=== PATIENT | female | born 1960 | race Caucasian/White ===

== ENCOUNTER 2017-10-02 22:30 | Emergency (ER) | payer SELFPAY ==
[2017-10-02] MEDS ORDERED: Ketorolac Tromethamine 30 MG/ML VIAL ONE (22:41)
[2017-10-02] MEDS ORDERED: Ondansetron HCl/PF 4 MG/2 ML Vial ONE (22:41)
[2017-10-02 23:00] LABS: Bilirubin Negative (Negative); Blood, Urine Negative (Negative); Clarity Clear (Clear); Glucose, Urine (Dipstick) Negative (Negative); Leukocyte Trace (Negative); Nitrite Negative (Negative); Protein, Urine (Dipstick) Negative (Neg-Trace); Urobilinogen 0.2 mg/dL (0.2-1.0)
[2017-10-02 23:02] LABS: Specific Gravity, Urine 1.006 (1.002-1.036)
[2017-10-02 23:04] LABS: Bacteria/HPF None Seen HPF (None Seen); RBC/HPF None Seen HPF (0-3); Squamous Epithelial 0-3 HPF (0-3); WBC/HPF 0-3 HPF (0-3)
[2017-10-02 23:13] LABS: Band 3 % (5-11); Eosinophils 4 % (0-10); Lymphocytes 42 % (21-51); MDiff Complete? YES; Mean Corpuscular HGB CONC 31.1 g/dL (32.0-36.0); Mean Corpuscular Hemoglobin 27.1 pg (27.0-31.0); Mean Corpuscular Volume 87.3 fl (81.0-99.0); Mean Platelet Volume 8.2 fL (7.4-10.4); Monocytes 3 % (0-10); Neutrophil 48 % (42-75); PLT Morphology Comment Appears Adequate; Platelet Count 342 thou/uL (130-400); RBC Distribution Width 13.1 % (11.5-14.5); RBC Morphology Normal; White Blood Cell (WBC) Count 12.5 thou/uL (4.8-10.8)
--- NOTE | 2017-10-02 23:33 | CT ---
CT OF THE ABDOMEN AND PELVIS: Date: 10/02/17 PROVIDED CLINICAL HISTORY: Abdominal pain. FINDINGS: No comparisons. Visualized lung bases are free of significant opacity. The solid abdominal organs demonstrate an unre markable unenhanced appearance. 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 There is marked gaseous distention of the excluded gastric remnant, duodenum, and proximal small bowel. There are numerous loops of mildly dilated bowel containing particulate matter. There is a focal area of dilated bowel present within the pelvis that appears to represent small bowel and measures up to 9.5 cm in greatest transverse dimension. There a re decompressed loops of distal small bowel, as well as decompressed colon. There is no evidence for pneumatosis or portal venous gas. There is no evidence for pneumoperitoneum. Changes of prior cholecy stectomy are seen. Scattered vascular calcifications are noted. The osseous structures demonstrate no concerning lytic or blastic lesions. Bone island involving the right iliac wing is seen. IMPRESSION: Findings compatible with small bowel obstruction. The degree of retained particulate matter within th e small bowel suggests a component of a longstanding low grade partial small bowel obstruction. POS: [id number]
[2017-10-02] MEDS ORDERED: Promethazine HCl 25 MG/ML VIAL ONE (23:35)
[2017-10-02 23:36] LABS: ALT (SGPT) 25 U/L (8-55); AST (SGOT) 27 U/L (5-34); Albumin 4.3 g/dL (3.5-5.0); Alkaline Phosphatase 144 U/L (40-150); Anion Gap 15 mmol/L (10-20); BUN (Urea Nitrogen) 8 mg/dL (9.8-20.1); Bilirubin, Total 0.2 mg/dL (0.2-1.2); Calc. Creatinine Clearance 0 mL/min (70-130); Calcium 9.4 mg/dL (7.8-10.44); Carbon Dioxide 24 mmol/L (22-29); Chloride 108 mmol/L (98-107); Estimated GFR-MDRD 76; Globulin 2.6 g/dL (2.4-3.5); Glucose 119 mg/dL (70-105); Potassium 4.4 mmol/L (3.5-5.1); Protein, Total 6.9 g/dL (6.0-8.3); Sodium 143 mmol/L (136-145)
[2017-10-02] MEDS ORDERED: Sodium Chloride 0.9% 0 ML ONE (23:36)
[2017-10-02] MEDS ORDERED: Fentanyl 100 MCG/2 ML VIAL ONE (23:48)
== END 2017-10-03 00:03 | disposition short-term general hospital (02) ==
LOC: NAV ERS 22:30
DX: K56.609 Unspecified intestinal obstruction, unspecified as to partial versus complete obstruction (principal); F32.9 Major depressive disorder, single episode, unspecified; Z79.899 Other long term (current) drug therapy
CPT/HCPCS: 74176; 80053; 81003; 81015; 85025; 87077; 87086; 87186; 96374; 96375; J1885; J2405; J2550; J3010; J7050

== ENCOUNTER 2022-08-27 08:20 | Emergency (ER) | payer MEDICARE ==
[2022-08-27] MEDS ORDERED: Sodium Chloride 0.9% 1,000 ML ONE ×3 (08:54→11:59)
[2022-08-27] MEDS ORDERED: Promethazine HCl 25 MG/ML VIAL ONE (08:54)
[2022-08-27] MEDS ORDERED: Pantoprazole 40 MG VIAL ONE (08:54)
[2022-08-27 09:01] LABS: #Eosinphils 0.3 thou/uL (0.0-0.7); #Lymphocytes 0.6 thou/uL (1.20-3.40); #Monocytes 0.3 thou/uL (0.11-0.59); #Neutrophils 10.5 thou/uL (1.40-6.50); %Basophils 0.3 % (0.0-1.0); %Eosinophils 2.4 % (0.0-10.0); %Lymphocytes 4.7 % (21.0-51.0); %Monocytes 2.2 % (0.0-10.0); %Neutrophils 90.4 % (42.0-75.0); Hemoglobin 12.6 g/dL (12.0-16.0); Mean Corpuscular HGB CONC 30.1 g/dL (32.0-36.0); Mean Corpuscular Hemoglobin 23.3 pg (27.0-31.0); Mean Corpuscular Volume 77.6 fl (78.0-98.0); Mean Platelet Volume 8.2 fL (7.4-10.4); Platelet Count 323 10x3/uL (130-400); RBC Distribution Width 16.1 % (11.5-14.5); Red Blood Cell (RBC) Count 5.38 mill/uL (4.20-5.40); White Blood Cell (WBC) Count 11.7 10x3/uL (4.8-10.8)
[2022-08-27 09:03] LABS: Anisocytosis SLIGHT = 6-15 cells (100X) (0-5/hpf); Target Cells SLIGHT = 2-5 cells (100X) (0-1/hpf)
[2022-08-27 09:04] LABS: Microcytosis SLIGHT = 6-15 cells (100X) (0-5/hpf)
[2022-08-27 09:05] LABS: Platelet Morphology Comment Appears Adequate
[2022-08-27 09:17] LABS: ALT (SGPT) 28 U/L (8-55); AST (SGOT) 15 U/L (5-34); Albumin 4.2 g/dL (3.5-5.0); Alkaline Phosphatase 169 U/L (40-110); Anion Gap 17 mmol/L (10-20); BUN (Urea Nitrogen) 21 mg/dL (9.8-20.1); Bilirubin, Total 0.3 mg/dL (0.2-1.2); Calc. Creatinine Clearance 0 mL/min (70-130); Calcium 8.9 mg/dL (7.8-10.44); Carbon Dioxide 21 mmol/L (22-29); Chloride 103 mmol/L (98-107); Estimated GFR 101; Globulin 2.3 g/dL (2.4-3.5); Glucose 132 mg/dL (70-105); Lipase 9 U/L (8-78); Potassium 3.9 mmol/L (3.5-5.1); Protein, Total 6.5 g/dL (6.0-8.3); Sodium 137 mmol/L (136-145)
[2022-08-27] MEDS ORDERED: Ketorolac Tromethamine 30 MG/ML VIAL ONE (09:51)
[2022-08-27 11:24] LABS: Bilirubin Negative (Negative); Blood, Urine Negative (Negative); Clarity Clear (Clear); Glucose, Urine (Dipstick) Negative (Negative); Ketone, Urine Negative (Negative); Leukocyte Negative (Negative); Nitrite Negative (Negative); Protein, Urine (Dipstick) Negative (Neg-Trace); Urobilinogen 0.2 mg/dL (Less than 2); pH, Urine 5.5 (5.0-9.0)
== END 2022-08-27 13:19 | disposition home or self-care (01) ==
LOC: NAV ERS 08:20
DX: K29.00 Acute gastritis without bleeding (principal)
CPT/HCPCS: 36415; 80053; 81003; 83605; 83690; 84484; 85025; 93005; 96361; 96365; 96375; C9113; J1885; J2550; J7050

== ENCOUNTER 2024-04-17 11:39 | Outpatient (CLI) | payer MEDICARE | END 2024-04-17 11:40 | disposition home or self-care (01) | LOC: NAV RAD 11:39 | PROVIDERS: ATTEND Student in an Organized Health Care Education/Training Program | DX: J40 Bronchitis, not specified as acute or chronic (principal) | CPT/HCPCS: 71046 ==